=== PATIENT | female | born 1945 | race Two or more races ===

== ENCOUNTER 2021-03-10 13:57 | Emergency (ER) | payer MEDICARE, OTHER ==
[~2021-03-10] VITALS: Ht 160 cm; Wt 74.5 kg
[2021-03-10 16:25] VITALS: BP 131/63
== END 2021-03-10 16:39 | disposition home or self-care (01) ==
LOC: EMS 14:02
DX: L98.8 Other specified disorders of the skin and subcutaneous tissue (principal)
CPT/HCPCS: 99281; Z7502